=== PATIENT | female | born 2000 | race Caucasian/White ===

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

== ENCOUNTER 2021-12-22 17:29 | Outpatient (CLI) | payer MEDICAID ==
--- NOTE | 2021-12-23 04:08 | XRAY Report ---
PROCEDURE: Ribs 2 View LT INDICATIONS: RIB PAIN,LEFT SIDED TECHNIQUE: 3 views of the left ribs were acquired. COMPARISON: Chest x-ray 12/12/2021 FINDINGS: Surgical changes and devices: None. Bones and chest wall: No displaced rib fracture identified. No suspicious bony lesions. Overlying s oft tissues appear unremarkable. Lungs and pleura: The visualized lung appears clear. No pleural effusions or pneumothorax are visib le. IMPRESSION: 1. No displaced rib fracture identified. Reviewed by: David Garcia MD on 12/23/2021 4:07 AM PDT Approved by: David Garcia MD on 12/23/2021 4:07 AM PDT Station ID: [id number]
== END 2021-12-22 17:30 | disposition home or self-care (01) ==
LOC: DI 17:29
PROVIDERS: ATTEND Physician Assistant Medical
DX: R07.81 Pleurodynia (principal)

== ENCOUNTER 2021-12-26 17:25 | Outpatient (CLI) | payer MEDICAID ==
[2021-12-26 20:55] LABS: BASOPHILS # (AUTO) 0.1 10^3/uL (0.0-0.1); BASOPHILS % (AUTO) 0.5 %; EOSINOPHILS # (AUTO) 0.1 10^3/uL (0.0-0.7); EOSINOPHILS % (AUTO) 1.4 %; HCT - HEMATOCRIT 39.7 % (37.0-47.0); HGB - HEMOGLOBIN 12.8 g/dL (12.0-16.0); LYMPHOCYTES # (AUTO) 2.5 10^3/uL (1.5-3.5); LYMPHOCYTES % (AUTO) 27.1 %; MEAN CORPUSCULAR HEMOGLOBIN 28.1 pg (27.0-31.0); MEAN CORPUSCULAR HGB CONC 32.2 g/dL (32.0-36.0); MEAN CORPUSCULAR VOLUME 87.1 fL (81.0-99.0); MEAN PLATELET VOLUME 11.9 fL (7.9-10.8); MONOCYTES # (AUTO) 0.8 10^3/uL (0.0-1.0); MONOCYTES % (AUTO) 8.7 %; NEUTROPHILS # (AUTO) 5.6 10^3/uL (1.5-6.6); PLT - PLATELET COUNT 317 10^3/uL (130-450); RED BLOOD COUNT 4.56 10^6/uL (4.20-5.40); RED CELL DISTRIBUTION WIDTH 13.2 % (12.0-15.0); WHITE BLOOD COUNT 9.1 x10^3/uL (4.8-10.8)
[2021-12-26 21:07] LABS: ALBUMIN 4.7 g/dL (3.2-5.5); ALBUMIN/GLOBULIN RATIO 1.5 (1.0-2.2); BILIRUBIN,TOTAL 0.5 mg/dL (0.2-1.0); CALCIUM 9.6 mg/dL (8.5-10.3); CREATININE 0.7 mg/dL (0.4-1.0); TOTAL PROTEIN 7.9 g/dL (6.7-8.2)
[2021-12-26 21:20] LABS: THYROID STIMULATING HORMONE 2.47 uIU/mL (0.34-5.60)
== END 2021-12-26 17:26 | disposition home or self-care (01) ==
LOC: LAB.N 17:25
PROVIDERS: ATTEND Physician Assistant Medical
DX: Z00.00 Encounter for general adult medical examination without abnormal findings (principal); R10.11 Right upper quadrant pain
CPT/HCPCS: 36415; 80053; 84443; 85025

== ENCOUNTER 2021-12-29 10:10 | Outpatient (CLI) | payer MEDICAID ==
--- NOTE | 2021-12-29 13:01 | Ultrasound Report ---
PROCEDURE: Abdomen Limited INDICATIONS: RUQ ABD PAIN TECHNIQUE: Real-time focused scanning was performed of the abdomen, with image documentation. COMPARISON: None FINDINGS: Liver is normal in size and show mildly increased liver parenchymal echotexture, no discrete hepatic lesion. There is no gallstone. No gallbladder wall thickening or pericholecystic fluid. No sonographic Bowers 's sign. There is no intrahepatic biliary ductal dilatation. Common bile that measures up to 2.6 mm in diamete r and is within normal limits. Visualized portion of pancreas shows no gross abnormality. Right kidney measures 10 cm in length and 1.3 cm in cortical thickness. No hydronephrosis or solid ap pearing renal lesion. IMPRESSION: 1. Mild hepatic steatosis, no discrete hepatic lesion. 2. Normal-appearing gallbladder. No biliary ductal dilatation. Reviewed by: Reyes Gómez MD on 12/29/2021 1:00 PM PDT Approved by: Reyes Gómez MD on 12/29/2021 1:00 PM PDT Station ID: [id number]
== END 2021-12-29 10:11 | disposition home or self-care (01) ==
LOC: DI 10:10
PROVIDERS: ATTEND Physician Assistant Medical
DX: K76.0 Fatty (change of) liver, not elsewhere classified (principal)

== ENCOUNTER 2022-02-13 12:44 | Outpatient (CLI) | payer BC, MEDICAID | END 2022-02-13 12:45 | disposition home or self-care (01) | LOC: NS 12:44 | PROVIDERS: ATTEND Physician Assistant Medical | DX: K76.0 Fatty (change of) liver, not elsewhere classified (principal); Z71.3 Dietary counseling and surveillance; Z71.89 Other specified counseling; Z68.33 Body mass index [BMI] 33.0-33.9, adult | CPT/HCPCS: 97802 ==

== ENCOUNTER 2022-02-13 14:14 | Outpatient (CLI) | payer BC, MEDICAID ==
[2022-02-13 15:07] LABS: FERRITIN 10.1 ng/mL (11.0-306.8)
[2022-02-13 15:08] LABS: PROLACTIN 9.92 ng/mL
[2022-02-13 15:29] LABS: FOLLICLE STIMULATING HORMONE 5.72 mIU/mL
[2022-02-13 15:30] LABS: LUTEINIZING HORMONE 6.34 mIU/mL
[2022-02-14 04:08] LABS: VITAMIN D 25-HYDROXY 31.4 ng/mL (30.0-100.0)
[2022-02-14 06:11] LABS: ESTRADIOL 93.5 pg/mL (.); PROGESTERONE 0.3 ng/mL (.)
== END 2022-02-13 14:15 | disposition home or self-care (01) ==
LOC: LAB 14:14
PROVIDERS: ATTEND Physician Assistant Medical
DX: K76.0 Fatty (change of) liver, not elsewhere classified (principal); R53.83 Other fatigue; F41.9 Anxiety disorder, unspecified; F32.A Depression, unspecified; Z71.3 Dietary counseling and surveillance
CPT/HCPCS: 36415; 82306; 82607; 82670; 82728; 83001; 83002; 84144; 84146; 97802

== ENCOUNTER 2022-03-09 14:01 | Outpatient (CLI) | payer BC, MEDICAID | END 2022-03-09 14:02 | disposition critical access hospital (66) | LOC: EMS 14:01 | DX: R10.9 Unspecified abdominal pain (principal); R30.9 Painful micturition, unspecified; R23.2 Flushing | CPT/HCPCS: A0425; A0429 ==

== ENCOUNTER 2022-03-09 14:21 | Emergency (ER) | payer BC, MEDICAID ==
[2022-03-09 14:54] LABS: BASOPHILS # (AUTO) 0.1 10^3/uL (0.0-0.1); BASOPHILS % (AUTO) 0.6 %; EOSINOPHILS # (AUTO) 0.1 10^3/uL (0.0-0.7); HCT - HEMATOCRIT 43.5 % (37.0-47.0); HGB - HEMOGLOBIN 14.4 g/dL (12.0-16.0); LYMPHOCYTES # (AUTO) 1.5 10^3/uL (1.5-3.5); LYMPHOCYTES % (AUTO) 15.9 %; MEAN CORPUSCULAR HEMOGLOBIN 28.6 pg (27.0-31.0); MEAN CORPUSCULAR HGB CONC 33.1 g/dL (32.0-36.0); MEAN CORPUSCULAR VOLUME 86.3 fL (81.0-99.0); MONOCYTES # (AUTO) 0.6 10^3/uL (0.0-1.0); MONOCYTES % (AUTO) 6.9 %; NEUTROPHILS % (AUTO) 75.4 %; PLT - PLATELET COUNT 358 10^3/uL (130-450); RED BLOOD COUNT 5.04 10^6/uL (4.20-5.40); RED CELL DISTRIBUTION WIDTH 13.2 % (12.0-15.0); WHITE BLOOD COUNT 9.3 x10^3/uL (4.8-10.8)
[2022-03-09 15:07] LABS: ALBUMIN 4.9 g/dL (3.2-5.5); ALBUMIN/GLOBULIN RATIO 1.3 (1.0-2.2); BILIRUBIN,TOTAL 0.7 mg/dL (0.2-1.0); CREATININE 0.9 mg/dL (0.4-1.0); POTASSIUM 4.2 mmol/L (3.5-5.0); TOTAL PROTEIN 8.6 g/dL (6.7-8.2)
[2022-03-09] MEDS ORDERED: LIDOCAINE-MPF 2% 5 ML in SODIUM CHLORIDE 0.9% 50 ML IV STA (15:26)
[2022-03-09] MEDS ORDERED: KETOROLAC 30 MG/ML VIAL IVP STA (15:26)
--- NOTE | 2022-03-09 15:28 | ED Physician Documentation ---
PD HPI ABD PAIN - Stated complaint Stated Complaint: R KIDNEY PX - Chief complaint Chief Complaint: Abd Pain - History obtained from History obtained from: Patient - History of Present Illness Timing - onset: How many weeks ago (2) Timing - duration: Weeks (2) Timing - details: Gradual onset Pain level max: 10 Pain level now: 7 Quality: Aching, Pain Location: Other (R flank) Associated symptoms: Nausea. No: Fever, Vomiting, Hematemesis, Diarrhea, Constipation Similar symptoms before: Has not had sx before - Additional information Additional information: Patient is a 21-year-old female who presents to the emergency department with right flank pain. This been ongoing intermittently for the past 2 weeks. Worse with movement and better with rest. Pain became increasingly sharp today. Difficulty taking a deep breath. No recent illness. No recent travel. There is a family history of kidney stones. She has never had a kidney stone. No history of blood clots. Patient denies any possibility of . Review of Systems Ten Systems: 10 systems reviewed and negative Constitutional: denies: Fever, Chills Respiratory: denies: Cough : denies: Dysuria, Frequency, Hesitancy, Discharge Skin: denies: Rash Musculoskeletal: denies: Neck pain, Back pain Neurologic: denies: Headache PD PAST MEDICAL HISTORY - Past Medical History Past Medical History: Yes - Present Medications Home Medications: Ambulatory Orders Medication Instructions Recorded Confirmed HYDROcod/ACETAM 5/325 [[place] 5/325] 1 - 2 ea PO Q6H PRN #14 tablet 03/09/22 Ondansetron Odt [Zofran] 4 mg TL Q6H PRN #10 tablet 03/09/22 - Allergies Allergies/Adverse Reactions: Allergies Allergy/AdvReac Type Severity Reaction Status Date / Time amoxicillin Allergy Rash Verified 03/09/22 14:31 hydromorphone [From Dilaudid] Allergy Respiratory Verified 03/09/22 14:31 morphine Allergy Respiratory Verified 03/09/22 14:31 - Living Situation Living Arrangement: reports: At home - Social History Does the pt have substance abuse?: No - Family History Family history: reports: Non contributory PD ED PE NORMAL - Vitals Vital signs reviewed: Yes - General General: Alert and oriented X 3, No acute distress - HEENT HEENT: PERRL, Moist mucous membranes - Neck Neck: Supple, no meningeal sign - Cardiac Cardiac: RRR, Strong equal pulses - Respiratory Respiratory: No respiratory distress, Clear bilaterally - Abdomen Abdomen: Soft, Non distended, Other (mild R upper and lower abd TTP, no peritoneal signs) - Back Back: No CVA TTP, No spinal TTP - Derm Derm: Warm and dry - Extremities Extremities: No edema, No calf tenderness / cord - Neuro Neuro: Alert and oriented X 3 - Psych Psych: Normal mood, Normal affect Results - Vitals Vitals: Vital Signs - 24 hr 03/09/22 03/09/22 03/09/22 14:26 15:46 17:43 Temperature 36.6 C Heart Rate 100 95 94 Respiratory 18 16 16 Rate Blood Pressure 143/86 H 107/64 O2 Saturation 100 100 100 Oxygen O2 Source Room air - Labs Labs: Laboratory Tests 03/09/22 03/09/22 03/09/22 14:49 14:49 14:49 WBC 9.3 RBC 5.04 Hgb 14.4 Hct 43.5 MCV 86.3 MCH 28.6 MCHC 33.1 RDW 13.2 Plt Count 358 MPV 11.0 H Neut # (Auto) 7.0 H Lymph # (Auto) 1.5 [place] # (Auto) 0.6 Eos # (Auto) 0.1 Baso # (Auto) 0.1 Absolute Nucleated RBC 0.00 Nucleated RBC % 0.0 Sodium 137 Potassium 4.2 Chloride 98 L Carbon Dioxide 25 Anion Gap 14.0 H BUN 12 Creatinine 0.9 Estimated GFR (MDRD) 78 L Glucose 113 H Calcium 10.0 Total Bilirubin 0.7 AST 25 ALT 21 Alkaline Phosphatase 82 Total Protein 8.6 H Albumin 4.9 Globulin 3.7 Albumin/Globulin Ratio 1.3 Lipase 39 Serum HCG, Qual NEGATIVE Urine Color Urine Clarity Urine pH Ur Specific [place] Urine Protein Urine Glucose (UA) Urine Ketones Urine Occult Blood Urine Nitrite Urine Bilirubin Urine Urobilinogen Ur Leukocyte Esterase Urine RBC Urine WBC Ur Squamous Epith Cells Amorphous Sediment Urine Bacteria Ur Microscopic Review Urine Culture Comments Urine HCG, Qual 03/09/22 03/09/22 17:10 17:10 WBC RBC Hgb Hct MCV MCH MCHC RDW Plt Count MPV Neut # (Auto) Lymph # (Auto) [place] # (Auto) Eos # (Auto) Baso # (Auto) Absolute Nucleated RBC Nucleated RBC % Sodium Potassium Chloride Carbon Dioxide Anion Gap BUN Creatinine Estimated GFR (MDRD) Glucose Calcium Total Bilirubin AST ALT Alkaline Phosphatase Total Protein Albumin Globulin Albumin/Globulin Ratio Lipase Serum HCG, Qual Urine Color YELLOW Urine Clarity HAZY Urine pH 8.0 H Ur Specific [place] 1.015 Urine Protein TRACE Urine Glucose (UA) NEGATIVE Urine Ketones 40 H Urine Occult Blood MODERATE H Urine Nitrite NEGATIVE Urine Bilirubin NEGATIVE Urine Urobilinogen 0.2 (NORMAL) Ur Leukocyte Esterase SMALL H Urine RBC 6-10 H Urine WBC 6-10 H Ur Squamous Epith Cells MOD Squamous H Amorphous Sediment Moderate Urine Bacteria Moderate H Ur Microscopic Review INDICATED Urine Culture Comments NOT INDICATED Urine HCG, Qual NEGATIVE - Rads (name of study) CT abd/pelvis Radiology: Final report received, EMP read contemporaneously, See rad report PD MEDICAL DECISION MAKING - ED course Complexity details: reviewed results, re-evaluated patient, considered differential, d/w patient ED course: 21-year-old female with right flank/right-sided abdominal pain. Unclear etiology. No significant lab abnormalities. No significant CT abnormalities. No evidence of ureteral stone. No evidence of appendicitis. No evidence of pyelonephritis. Pain well controlled. Will place on pain meds and have her follow-up with her doctor for further care. Possible muscular issue? Patient counseled regarding signs and symptoms for which I believe and urgent re- evaluation would be necessary. Patient with good understanding of and agreement to plan and is comfortable going home at this time This document was made in part using voice recognition software. While efforts are made to proofread this document, sound alike and grammatical errors may occur. Appendix is normal. No right lower quadrant inflammatory change. Departure - Departure Disposition: 01 Home, Self Care Clinical Impression: Flank pain Condition: Good Instructions: ED Flank Pain Uncertain Cause Follow-Up: Vanessa Wei PA-C [Primary Care Provider] - Within 1 week Prescriptions: HYDROcod/ACETAM 5/325 [[place] 5/325] 1 - 2 ea PO Q6H PRN #14 tablet PRN Reason: Pain Ondansetron Odt [Zofran] 4 mg TL Q6H PRN #10 tablet PRN Reason: Nausea / Vomiting Comments: Your prescriptions were sent to [facility] in [place]. Please use the medication as needed for pain. Please follow-up with your doctor for further care. Return if you worsen. Your CT scan and laboratory testing did not show any acute abnormalities today. The cause of your symptoms is unclear. I am prescribing a short course of narcotic pain medication for you. These are potentially dangerous and addictive medications that should be used carefully. These medications may constipate you. Take an cehw-veg-ogkdkta stool softener (docusate) twice daily with plenty of water while taking these medications. If you go 24 hours without a bowel movement, take eteb-uyi-zrkhsuz miralax, per package instructions. Do not drink or drive while taking these medications. If you received narcotic or sedating medications while in the emergency department, do not drive for 24 hours. Store this medication in a safe, secure place and out of reach of children. It is a violation of federal law to give or sell this medication to another person or to use in a manner other than prescribed. The ED will not refill narcotic prescriptions, including prescriptions lost or stolen. To dispose of unwanted medications: 1. [facility] at [address] in [place] has a medication drop box. They accept prescription medications (in pill form) Saturday through Saturday 9:00 a.m. to 5:00 p.m. 2. [facility] [employer] accepts prescription medications (in pill form only) for disposal year round. Call for more information. 3. Contact the [facility] for the next [employer] sponsored prescription drug collection event. , [phone], or [phone]; Discharge Date/Time: 03/09/22 19:12
[2022-03-09] MEDS ORDERED: iohexoL-300 100 ML VIAL ONE (15:45)
[2022-03-09 17:22] LABS: BILIRUBIN,URINE NEGATIVE (NEGATIVE); GLUCOSE, URINE (UA) NEGATIVE (NEGATIVE); KETONES,URINE (UA) 40 mg/dL (NEGATIVE); LEUKOCYTE ESTERASE, URINE SMALL (NEGATIVE); NITRITE,URINE NEGATIVE (NEGATIVE); OCCULT BLOOD,URINE MODERATE (NEGATIVE); PROTEIN,URINE TRACE mg/dL (NEGATIVE); UROBILINOGEN,URINE 0.2 (NORMAL) E.U./dL (NORMAL)
[2022-03-09 17:29] LABS: CLARITY,URINE HAZY (CLEAR)
[2022-03-09 17:33] LABS: SQUAMOUS EPITHELIAL CELL,UR MOD Squamous (<= Few)
[2022-03-09 17:34] LABS: AMORPHOUS SEDIMENT,UR Moderate /LPF; BACTERIA,URINE Moderate /HPF (None Seen)
[2022-03-09 17:40] LABS: HCG,QUALITATIVE BLOOD NEGATIVE
[2022-03-09 17:47] LABS: HCG UR QUAL NEGATIVE
[2022-03-09 18:05] VITALS: BP 107/64
[2022-03-09] MEDS ORDERED: iohexoL-300 100 ML VIAL IVP ONE (18:20)
--- NOTE | 2022-03-09 18:27 | CT Report ---
PROCEDURE: ABDOMEN/PELVIS W INDICATIONS: R sided abd pain CONTRAST: 100ml omni 300 TECHNIQUE: After the administration of IP contrast, 5 mm thick sections acquired from the diaphragms to the symp hysis. 5 mm thick coronal and sagittal reformats were acquired. For radiation dose reduction, the f ollowing was used: automated exposure control, adjustment of mA and/or kV according to patient size. COMPARISON: Abdomen ultrasound 12/29/2021 FINDINGS: Image quality: Excellent. ABDOMEN: Lung bases: Lung bases are clear. Heart size is normal. Solid organs: Liver and spleen are normal in size and enhancement. Gallbladder is unremarkable Mat iary system is non dilated. Pancreas enhances normally. No adrenal nodules. Kidneys demonstrate no rmal size and enhancement, without hydronephrosis. Peritoneum and bowel: Bowel loops demonstrate normal wall thickness and caliber. No free fluid or a ir. Appendix is normal. Nodes and vessels: No retroperitoneal or mesenteric adenopathy by size criteria. Aorta and inferior vena cava are normal in size. Miscellaneous: No ventral hernias. PELVIS: Genitourinary: Bladder wall thickness is normal. IUD is present. Miscellaneous: No inguinal hernias or adenopathy. Bones: No suspicious bony lesions. No vertebral body compression fractures. IMPRESSION: Appendix is normal. No right lower quadrant inflammatory change. Reviewed by: Corinna Tamayo MD on 03/09/2022 6:25 PM PST Approved by: Corinna Tamayo MD on 03/09/2022 6:25 PM PST Station ID: [id number]
[2022-03-09] MEDS ORDERED: ONDANSETRON 4 MG/2 ML VIAL IVP STA (18:40)
[2022-03-09] MEDS ORDERED: HYDROcod/ACETAM 5/325 MG TABLET PO STA (18:52)
== END 2022-03-09 19:12 | disposition home or self-care (01) ==
LOC: EDUNIT# → ED 14:21
DX: R10.9 Unspecified abdominal pain (principal)
CPT/HCPCS: 36415; 74177; 80053; 81001; 81025; 83690; 84703; 85025; 96374; 96375; 99282; 99284; A9270; J7040; Q9967; 81003; 87086

== ENCOUNTER 2022-03-14 08:00 | Outpatient (CLI) | payer BC, MEDICAID | END 2022-03-14 23:59 | disposition home or self-care (01) | LOC: LAB 08:00 | PROVIDERS: ATTEND Physician Assistant Medical | DX: R10.31 Right lower quadrant pain (principal) | CPT/HCPCS: 87086 ==

== ENCOUNTER 2022-03-19 20:53 | Outpatient (CLI) | payer BC, MEDICAID ==
--- NOTE | 2022-03-20 13:44 | Ultrasound Report ---
PROCEDURE: Pelvic w/Transvaginal INDICATIONS: RLQ ABDOMINAL PAIN TECHNIQUE: Real-time scanning was performed of the pelvic organs, with image documentation. Additional endovagi nal scanning was necessary due to incomplete visualization of the adnexal and endometrial structures by transabdominal scanning. COMPARISON: CT abdomen and pelvis, 03/09/2022 ultrasound pelvis, 10/30/2016. FINDINGS: Uterus: Uterus is anteverted and normal in size at 6.5 x 3.1 x 4.0 cm. The myometrium is homogeneou s. The endometrium measures 4.9 mm in combined thickness. There is an IUD in appropriate position. Ovaries: The right ovary measures 3.2 x 1.7 x 2.6 cm, with a calculated ovarian volume of 7.4 cc. T he left ovary measures 3.4 x 2.2 x 4.4 cm, with a calculated ovarian volume of 17.5 cc. The ovaries have a normal sonographic appearance. Less than 12 follicles can be seen in each ovary. No adnexal masses are seen. Other: No pathologic free abdominal or pelvic fluid. IMPRESSION: 1. A cause for right lower quadrant pain is not identified on this exam. 2. IUD in appropriate position. 3. Normal uterus and ovaries. Reviewed by: Santhosh Paulson MD on 03/20/2022 1:43 PM PST Approved by: Santhosh Paulson MD on 03/20/2022 1:43 PM PST Station ID: [id number]
== END 2022-03-19 20:54 | disposition home or self-care (01) ==
LOC: DI 20:53
PROVIDERS: ATTEND Physician Assistant Medical
DX: R10.31 Right lower quadrant pain (principal); Z97.5 Presence of (intrauterine) contraceptive device

== ENCOUNTER 2022-04-02 08:00 | Outpatient (CLI) | payer BC, MEDICAID ==
[2022-04-02 22:37] LABS: BACTERIAL VAGINOSIS DNA NEGATIVE (NEGATIVE); CANDIDA GLABRATA DNA NEGATIVE (NEGATIVE); CANDIDA GROUP DNA POSITIVE (NEGATIVE); CANDIDA KRUSEI DNA NEGATIVE (NEGATIVE); TRICHOMONAS VAGINALIS DNA NEGATIVE (NEGATIVE)
[2022-04-02 23:43] LABS: CHLAMYDIA TRACHOMATIS DNA NEGATIVE (NEGATIVE); NEISSERIA GONORRHOEAE DNA NEGATIVE (NEGATIVE)
[2022-04-05 05:10] LABS: HIV SCREEN 4TH GENERATION Non Reactive (Non Reactive)
[2022-04-05 06:09] LABS: HCV AB 0.1 s/co ratio (0.0-0.9)
[2022-04-05 08:10] LABS: RPR Non Reactive (Non Reactive)
== END 2022-04-02 23:59 | disposition home or self-care (01) ==
LOC: LAB.N 08:00
PROVIDERS: ATTEND Physician Assistant
DX: N89.8 Other specified noninflammatory disorders of vagina (principal); Z20.2 Contact with and (suspected) exposure to infections with a predominantly sexual mode of transmission
CPT/HCPCS: 36415; 81514; 86592; 86803; 87389; 87491; 87591; 87661

== ENCOUNTER → 2022-04-03 | Outpatient (CLI) | payer BC, MEDICAID ==
[2022-04-05 05:10] LABS: HIV SCREEN 4TH GENERATION Non Reactive (Non Reactive)
[2022-04-05 06:09] LABS: HCV AB 0.1 s/co ratio (0.0-0.9)
[2022-04-05 08:10] LABS: RPR Non Reactive (Non Reactive)
== END ==
LOC: LAB.N 08:00
PROVIDERS: ATTEND Physician Assistant
DX: Z20.2 Contact with and (suspected) exposure to infections with a predominantly sexual mode of transmission (principal); N89.8 Other specified noninflammatory disorders of vagina
CPT/HCPCS: 36415; 86592; 86803; 87389

== ENCOUNTER 2022-05-03 20:22 | Emergency (ER) | payer BC, MEDICAID ==
--- NOTE | 2022-05-03 20:38 | ED Physician Documentation ---
PD HPI ABD PAIN - Stated complaint Stated Complaint: ABD/BACK PX, NAUSEA - Chief complaint Chief Complaint: Abd Pain - History obtained from History obtained from: Patient - History of Present Illness Timing - onset: How many weeks ago (2) Timing - duration: Weeks (2) Timing - details: Gradual onset (Has had pain in the right abdomen and flank for 2 weeks and had episodes of it prior to that as well. Has become right mid to lower abdomen yesterday and today and more severe.) Quality: Cramping, Aching, Pain Location: RLQ Radiation: Right flank Improved by: No: Eating, Laying still Worsened by: Moving. No: Eating, Breathing Associated symptoms: Nausea, Constipation (states no BMs for 2 weeks. Has had less appetite and thus less food intake. Also taking pain meds episodic the past 2 weeks which may likely be contributing to the constiaption. Taking Miralax daily.). No: Fever, Vomiting, Diarrhea Similar symptoms before: No diagnosis (She had pain in the similar area 3 months ago and seen in the ER with CT scan and labs without any positive findings. Follow-up in the office and had outpatient ultrasound. Being scheduled for HIDA scan.) Recently seen: Clinic, Emergency Dept (3 months ago for similar episode.) Review of Systems Constitutional: denies: Fever, Chills Nose: denies: Rhinorrhea / runny nose, Congestion Throat: denies: Sore throat Respiratory: denies: Cough : denies: Dysuria, Discharge Skin: denies: Rash, Lesions PD PAST MEDICAL HISTORY - Past Medical History Cardiovascular: None Respiratory: None Endocrine/Autoimmune: None - Present Medications Home Medications: Ambulatory Orders Medication Instructions Recorded Confirmed HYDROcod/ACETAM 5/325 [[place] 5/325] 1 - 2 ea PO Q6H PRN #14 tablet 03/09/22 Ondansetron Odt [Zofran] 4 mg TL Q6H PRN #10 tablet 03/09/22 Bisacodyl Supp [Dulcolax Supp] 10 mg FL DAILY PRN #10 supp 05/03/22 Famotidine [Pepcid] 20 mg PO DAILY #20 tablet 05/03/22 Lactulose 30 ml PO BID PRN #240 ml 05/03/22 Metoclopramide [Reglan] 10 mg PO Q6H PRN #30 tablet 05/03/22 - Allergies Allergies/Adverse Reactions: Allergies Allergy/AdvReac Type Severity Reaction Status Date / Time amoxicillin Allergy Rash Verified 05/03/22 20:33 hydromorphone [From Dilaudid] Allergy Respiratory Verified 05/03/22 20:33 morphine Allergy Respiratory Verified 05/03/22 20:33 - Social History Does the pt smoke?: No Smoking Status: Never smoker Does the pt have substance abuse?: No PD ED PE NORMAL - Vitals Vital signs reviewed: Yes - General General: Alert and oriented X 3, Well developed/nourished, Other (appears uncomfortable. ) - Neck Neck: Supple, no meningeal sign, No adenopathy - Cardiac Cardiac: RRR, No murmur - Respiratory Respiratory: Clear bilaterally - Abdomen Abdomen: Normal bowel sounds, Soft, Non distended, No organomegaly, Other (Tender in the right mid to lower abdomen without any percussion or referred tenderness. Some tenderness in the right flank to percussion. No rash or sores.) - Female Female : Deferred Results - Vitals Vitals: Vital Signs - 24 hr 05/03/22 05/03/22 05/03/22 20:26 20:33 22:12 Temperature 36.7 C Heart Rate 100 74 73 Respiratory 19 18 18 Rate Blood Pressure 132/81 H 113/69 102/62 O2 Saturation 100 96 100 05/03/22 23:00 Temperature Heart Rate 91 Respiratory 18 Rate Blood Pressure 109/79 O2 Saturation 99 Oxygen O2 Source Room air - Labs Labs: Laboratory Tests 05/03/22 05/03/22 05/03/22 20:38 20:38 20:38 WBC 9.3 RBC 5.00 Hgb 14.6 Hct 44.3 MCV 88.6 MCH 29.2 MCHC 33.0 RDW 12.4 Plt Count 345 MPV 10.9 H Neut # (Auto) 6.4 Lymph # (Auto) 2.0 [place] # (Auto) 0.7 Eos # (Auto) 0.1 Baso # (Auto) 0.1 Absolute Nucleated RBC 0.00 Nucleated RBC % 0.0 ESR 4 Sodium 134 L Potassium 3.8 Chloride 100 L Carbon Dioxide 27 Anion Gap 7.0 BUN 15 Creatinine 1.0 Estimated GFR (MDRD) 69 L Glucose 104 H Calcium 9.2 Total Bilirubin 1.0 AST 24 ALT 19 Alkaline Phosphatase 70 C-Reactive Protein Total Protein 8.2 Albumin 5.0 Globulin 3.2 Albumin/Globulin Ratio 1.6 Lipase 38 Urine Color Urine Clarity Urine pH Ur Specific [place] Urine Protein Urine Glucose (UA) Urine Ketones Urine Occult Blood Urine Nitrite Urine Bilirubin Urine Urobilinogen Ur Leukocyte Esterase Urine RBC Urine WBC Ur Squamous Epith Cells Urine Bacteria Urine Mucus Ur Microscopic Review Urine Culture Comments Urine HCG, Qual 05/03/22 05/03/22 05/03/22 20:38 20:45 20:45 WBC RBC Hgb Hct MCV MCH MCHC RDW Plt Count MPV Neut # (Auto) Lymph # (Auto) [place] # (Auto) Eos # (Auto) Baso # (Auto) Absolute Nucleated RBC Nucleated RBC % ESR Sodium Potassium Chloride Carbon Dioxide Anion Gap BUN Creatinine Estimated GFR (MDRD) Glucose Calcium Total Bilirubin AST ALT Alkaline Phosphatase C-Reactive Protein < 1.0 Total Protein Albumin Globulin Albumin/Globulin Ratio Lipase Urine Color DARK YELLOW Urine Clarity HAZY Urine pH 6.5 Ur Specific [place] 1.025 Urine Protein TRACE Urine Glucose (UA) NEGATIVE Urine Ketones 40 H Urine Occult Blood NEGATIVE Urine Nitrite NEGATIVE Urine Bilirubin SMALL H Urine Urobilinogen 2 H Ur Leukocyte Esterase NEGATIVE Urine RBC 0-5 Urine WBC 0-3 Ur Squamous Epith Cells FEW Squamous Urine Bacteria Moderate H Urine Mucus Marked Strands Ur Microscopic Review INDICATED Urine Culture Comments NOT INDICATED Urine HCG, Qual NEGATIVE - Rads (name of study) abd/pelvic CT Radiology: Prelim report reviewed (No obvious acute process.), See rad report PD Medical Decision Making - ED course Complexity details: reviewed results (CT scan does not show an acute obvious cause of the pain. Urine test shows some bacteria but also epithelial cells and is not cultured. Blood tests are in the normal range and diet ordered chemistry and CBC to evaluate for causes.), considered differential (Has had right flank and mid abdomen pain episodically for several months and has recurred the last 2 weeks with much worsening yesterday and today. She did have CT scan 3 months ago but I feel it may be appropriate to reimage at this point given the worsening.), d/w patient Reviewed Lab Results: No obvious cause of the pain is identified on labs, urine, CT scan. Consideration had been for kidney stones, diverticulitis, appendicitis, pyelonephritis. Her ESR is quite normal so makes IBD or Crohn's seem less likely. She was to get a HIDA scan scheduled through her primary and could still consider this of the pains not necessarily right upper quadrant exactly what I expected to be for gallbladder spasms. Regarding her constipation, it likely relates to pain medication use as well as decreased food intake. She does not feel distended and her CT scan was not a showing an excessively large amount of stool. However we can augment her MiraLAX with lactulose and also Dulcolax. For her nausea we can change to Reglan which may have a help with increasing peristalsis. This will allow improvement on both "mush and push" aspects of constipation. Departure - Departure Disposition: Home, Self Care Clinical Impression: Right sided abdominal pain Condition: Stable Record reviewed to determine appropriate education?: Yes Instructions: ED Abdominal Pain Female Non-Specific Abdominal Pain Follow-Up: Vanessa Wei PA-C [Primary Care Provider] - Prescriptions: Bisacodyl Supp [Dulcolax Supp] 10 mg FL DAILY PRN #10 supp PRN Reason: Constipation Lactulose 30 ml PO BID PRN #240 ml PRN Reason: Constipation Famotidine [Pepcid] 20 mg PO DAILY #20 tablet Metoclopramide [Reglan] 10 mg PO Q6H PRN #30 tablet PRN Reason: Nausea / Vomiting Comments: Your urine test does not show any signs of infection. Your blood tests are showing normal liver and pancreas enzymes normal kidney function. He also have a normal ESR which is an inflammatory marker that would likely correlate with inflammatory colitis such as IBD or Crohn's. That makes those less likely but not fully excluded. At this point is not clear the cause of your pain. Given the back and upper abdomen location initially as well as the lack of appetite/nausea, I would consider the idea of some duodenal irritation/inflammation (similar to gastritis/stomach irritation but in the first segment of the small intestine). For this I would suggest trying some famotidine acid reducing medicine twice daily for a few days and then once daily for 2 to 3 weeks. Also some antacid such as Maalox or Mylanta 2-3 times daily, in particular after meals and see if that helps some of the pains. For the nausea, continue with the ondansetron or alternatively you can try Reglan nausea medicine instead. This may last longer than the Zofran has been for you and also has an advantage of being stimulatory for intestinal peristalsis. This may help with your constipation as well. For the constipation you can continue the MiraLAX. I would add lactulose which is another softener and does provide some stimulation of the peristalsis. If still not having easy bowel movement, add Dulcolax suppository. This would try to stimulate intestinal movement. It this combination for the constipation is trying to help with both "mush and push" as improvements in constipation. Continue with Tylenol every 4-6 hours for pain regularly and to that add the previously prescribed pain pills as needed. I sent the new prescriptions to your [facility] pharmacy in [place]. Discharge Date/Time: 05/03/22 23:02
[2022-05-03 20:51] LABS: BASOPHILS # (AUTO) 0.1 10^3/uL (0.0-0.1); BASOPHILS % (AUTO) 0.8 %; EOSINOPHILS # (AUTO) 0.1 10^3/uL (0.0-0.7); EOSINOPHILS % (AUTO) 0.6 %; HCT - HEMATOCRIT 44.3 % (37.0-47.0); HGB - HEMOGLOBIN 14.6 g/dL (12.0-16.0); LYMPHOCYTES % (AUTO) 21.9 %; MEAN CORPUSCULAR HEMOGLOBIN 29.2 pg (27.0-31.0); MEAN CORPUSCULAR VOLUME 88.6 fL (81.0-99.0); MEAN PLATELET VOLUME 10.9 fL (7.9-10.8); MONOCYTES # (AUTO) 0.7 10^3/uL (0.0-1.0); MONOCYTES % (AUTO) 7.9 %; NEUTROPHILS # (AUTO) 6.4 10^3/uL (1.5-6.6); NEUTROPHILS % (AUTO) 68.7 %; PLT - PLATELET COUNT 345 10^3/uL (130-450); RED CELL DISTRIBUTION WIDTH 12.4 % (12.0-15.0); WHITE BLOOD COUNT 9.3 x10^3/uL (4.8-10.8)
[2022-05-03] MEDS ORDERED: KETOROLAC 15 MG/ML VIAL IVP STA (20:54)
[2022-05-03] MEDS ORDERED: SODIUM CHLORIDE 0.9% 1,000 ML IV STA (20:54)
[2022-05-03] MEDS ORDERED: DROPERIDOL 5 MG/2 ML VIAL IVP STA (20:54)
[2022-05-03] MEDS ORDERED: NALBUPHINE 10 MG/ML AMP IVP STA (20:54)
[2022-05-03 21:07] LABS: ALBUMIN/GLOBULIN RATIO 1.6 (1.0-2.2); CALCIUM 9.2 mg/dL (8.5-10.3); POTASSIUM 3.8 mmol/L (3.5-5.0); TOTAL PROTEIN 8.2 g/dL (6.7-8.2)
[2022-05-03] MEDS ORDERED: iohexoL-300 100 ML VIAL ONE (21:11)
[2022-05-03 21:13] LABS: GLUCOSE, URINE (UA) NEGATIVE (NEGATIVE); KETONES,URINE (UA) 40 mg/dL (NEGATIVE); LEUKOCYTE ESTERASE, URINE NEGATIVE (NEGATIVE); NITRITE,URINE NEGATIVE (NEGATIVE); OCCULT BLOOD,URINE NEGATIVE (NEGATIVE); PH,URINE 6.5 PH (5.0-7.5); PROTEIN,URINE TRACE mg/dL (NEGATIVE); UROBILINOGEN,URINE 2 E.U./dL (NORMAL)
[2022-05-03 21:16] LABS: CLARITY,URINE HAZY (CLEAR); HCG UR QUAL NEGATIVE
[2022-05-03 21:17] LABS: BILIRUBIN,URINE SMALL (NEGATIVE); ICTOTEST,URINE POSITIVE
[2022-05-03 21:28] LABS: BACTERIA,URINE Moderate /HPF (None Seen); MUCUS,URINE Marked Strands; RBC,URINE 0-5 /HPF (0-5); SQUAMOUS EPITHELIAL CELL,UR FEW Squamous (<= Few); WBC,URINE 0-3 /HPF (0-5)
--- NOTE | 2022-05-03 22:24 | CT Report ---
PROCEDURE: ABDOMEN/PELVIS W INDICATIONS: right abd and flank pain worse past few days. CONTRAST: Omni 300 100ml TECHNIQUE: After the administration of intravenous contrast, 5 mm thick sections acquired from the diaphragms to the symphysis. 5 mm thick coronal and sagittal reformats were acquired. For radiation dose reducti on, the following was used: automated exposure control, adjustment of mA and/or kV according to miller ent size. COMPARISON: None. FINDINGS: Image quality: Excellent. Lung bases:There is minimal dependent atelectasis. Heart: Heart is normal in size. ABDOMEN: Liver: No mass lesion. Gallbladder: Within normal limits without calcified gallstones. Biliary ducts: No biliary ductal dilatation. Pancreas: Unremarkable. Spleen: Normal in size. Adrenal Glands: No adrenal nodules. Kidneys and Ureters: No hydronephrosis. Stomach and Bowel: Stomach, small bowel loops, and colon are normal in caliber and wall thickness. A ppendix is normal in appearance. Peritoneum: No abnormal intraperitoneal fluid. No free air. Ventral Wall: No hernia. Abdominal Nodes: No retroperitoneal or mesenteric adenopathy by size criteria. Vessels: Aorta and inferior vena cava are normal in size. PELVIS: Pelvic Organs: An IUD appears in appropriate position within the uterus. Bladder: Unremarkable. Pelvic Nodes: No enlarged lymph nodes. Miscellaneous: No inguinal hernias. Bones: Visualized osseous structures demonstrate no suspicious lesions. IMPRESSION: 1. No definite acute intra-abdominal abnormality. Specifically, no evidence of appendicitis or obstru ctive uropathy. Reviewed by: David Garcia MD on 05/03/2022 10:23 PM PST Approved by: David Garcia MD on 05/03/2022 10:23 PM PST Station ID: [id number]
[2022-05-03] MEDS ORDERED: LACTULOSE 10 GM /15 ML UDC PO STA (22:30)
[2022-05-03] MEDS ORDERED: FAMOTIDINE 20 MG TABLET PO STA (22:39)
[2022-05-03 23:02] VITALS: BP 109/79
[2022-05-04] MEDS ORDERED: iohexoL-300 100 ML VIAL IVP ONE (02:06)
== END 2022-05-03 23:02 | disposition home or self-care (01) ==
LOC: ED 20:22
DX: R10.31 Right lower quadrant pain (principal)
CPT/HCPCS: 36415; 74177; 80053; 81001; 81025; 83690; 85025; 85651; 86140; 96374; 96375; 99283; 99284; A9270; J2300; Q9967; 81003; 87086

== ENCOUNTER 2022-05-16 08:51 | Outpatient (CLI) | payer BC, MEDICAID ==
[2022-05-16 09:21] LABS: BASOPHILS # (AUTO) 0.1 10^3/uL (0.0-0.1); BASOPHILS % (AUTO) 0.8 %; EOSINOPHILS # (AUTO) 0.1 10^3/uL (0.0-0.7); EOSINOPHILS % (AUTO) 1.2 %; HCT - HEMATOCRIT 43.3 % (37.0-47.0); HGB - HEMOGLOBIN 14.1 g/dL (12.0-16.0); LYMPHOCYTES % (AUTO) 27.4 %; MEAN CORPUSCULAR HGB CONC 32.6 g/dL (32.0-36.0); MEAN CORPUSCULAR VOLUME 89.1 fL (81.0-99.0); MEAN PLATELET VOLUME 11.3 fL (7.9-10.8); MONOCYTES # (AUTO) 0.6 10^3/uL (0.0-1.0); MONOCYTES % (AUTO) 8.3 %; NEUTROPHILS # (AUTO) 4.6 10^3/uL (1.5-6.6); PLT - PLATELET COUNT 280 10^3/uL (130-450); RED BLOOD COUNT 4.86 10^6/uL (4.20-5.40); RED CELL DISTRIBUTION WIDTH 12.7 % (12.0-15.0); WHITE BLOOD COUNT 7.4 x10^3/uL (4.8-10.8)
[2022-05-16 09:45] LABS: % IRON SATURATION 46 % (20-50); IRON 189 ug/dL (28-170); TOTAL IRON BINDING CAPACITY 409 ug/dL (250-450); TRANSFERRIN 292 mg/dL (192-382)
[2022-05-16 09:51] LABS: THYROID STIMULATING HORMONE 2.38 uIU/mL (0.34-5.60)
[2022-05-16 09:58] LABS: FERRITIN 11.3 ng/mL (11.0-306.8)
== END 2022-05-16 08:52 | disposition home or self-care (01) ==
LOC: LAB 08:51
PROVIDERS: ATTEND Physician Assistant Medical
DX: R53.83 Other fatigue (principal)
CPT/HCPCS: 36415; 82607; 82728; 83540; 84443; 84466; 85025

== ENCOUNTER 2022-06-20 08:52 | Outpatient (CLI) | payer BC ==
[2022-06-20 12:33] LABS: ESTIMATED AVERAGE GLUCOSE 103 mg/dL (70-100); HEMOGLOBIN A1c% 5.2 % (4.27-6.07)
[2022-06-20 12:44] LABS: ALBUMIN 4.2 g/dL (3.2-5.5); ALBUMIN/GLOBULIN RATIO 1.3 (1.0-2.2); ALKALINE PHOSPHATASE 65 IU/L (42-121); ALT ALANINE AMINOTRANSFERASE 17 IU/L (10-60); AST ASPARTATE AMINOTRANSFERASE 21 IU/L (10-42); BILIRUBIN,TOTAL 0.6 mg/dL (0.2-1.0); BUN - BLOOD UREA NITROGEN 14 mg/dL (6-20); CALCIUM 9.5 mg/dL (8.5-10.3); CARBON DIOXIDE - CO2 27 mmol/L (21-32); CHLORIDE 103 mmol/L (101-111); CHOL/HDL RATIO 3.4 (<4.4); CHOLESTEROL 158 mg/dL; CREATININE 0.7 mg/dL (0.4-1.0); GFR - MDRD 104 (>89); GLUCOSE 93 mg/dL (70-100); HDL CHOLESTEROL 47 mg/dL; LDL CHOLESTEROL,CALCULATED 101 mg/dL; LDL/HDL RATIO 2.1 (<4.4); POTASSIUM 4.1 mmol/L (3.5-5.0); SODIUM 137 mmol/L (135-145); TOTAL PROTEIN 7.4 g/dL (6.7-8.2); TRIGLYCERIDES 49 mg/dL; VLDL CHOLESTEROL 10 mg/dL
== END 2022-06-20 08:53 | disposition home or self-care (01) ==
LOC: LAB.N 08:52
PROVIDERS: ATTEND Family Medicine
DX: R73.9 Hyperglycemia, unspecified (principal); R53.83 Other fatigue; Z13.220 Encounter for screening for lipoid disorders
CPT/HCPCS: 36415; 80053; 80061; 83036; 83721

== ENCOUNTER 2022-07-02 18:42 | Outpatient (CLI) | payer BC ==
[2022-07-02] MEDS ORDERED: iohexoL-300 100 ML VIAL ONE (18:47)
--- NOTE | 2022-07-02 19:52 | CT Report ---
PROCEDURE: ANGIO CHEST W/WO INDICATIONS: DYSPNEA CONTRAST: 80mL Omni 300 TECHNIQUE: After the administration of intravenous contrast, 2 mm axial images were acquired from the pulmonary apices to the posterior costophrenic angles during the arterial phase. In addition, 1 mm lung kernel and 5 mm soft tissue kernel reconstructions were performed. 3-dimensional coronal oblique maximum int ensity projection (MIP) reformats, 8 mm axial MIP, and 5 mm coronal and sagittal MPR reformats were t hen performed through the thorax. For radiation dose reduction, the following was used: automated exp osure control, adjustment of mA and/or kV according to patient size. COMPARISON: None FINDINGS: Image quality: Excellent. Pulmonary arteries: Pulmonary arteries are normal in size, and demonstrate no intraluminal filling d efects to suggest central pulmonary embolism. Lungs and pleura: Lungs are clear. No pleural effusions or pneumothorax. Central and peripheral ai rways are patent. Mediastinum: Heart size is normal, without pericardial effusion. No mediastinal or hilar adenopathy . Thoracic aorta is normal in caliber and enhancement. Esophagus is normal in caliber, without hiat al hernia. Bones and chest wall: No suspicious bony lesions. Ribs and thoracic spine appear intact throughout. No axillary or supraclavicular adenopathy. The thyroid is normal in size and there are no incident al findings. Abdomen: Visualized upper abdominal solid organs appear normal in the early arterial phase of enhanc ement. IMPRESSION: 1. No evidence of pulmonary bullae. No thoracic aortic aneurysm or dissection. 2. Bilateral lungs are clear. 3. No mediastinal or hilar lymphadenopathy. CLINICAL RECOMMENDATION STATEMENTS: In patients <35 years with an ITN detected on CT, MRI, or extrathyroidal ultrasound, the Committee re commends further evaluation with dedicated thyroid ultrasound if the nodule is "e1 cm and has no susp icious imaging features, and if the patient has normal life expectancy. In patients "e35 years with an ITN detected on CT, MRI, or extrathyroidal ultrasound, the Committee r ecommends further evaluation with dedicated thyroid ultrasound if the nodule is "e1.5 cm and has no s uspicious imaging features, and if the patient has normal life expectancy. (ACR, 2014) Reviewed by: Reyes Gómez MD on 07/02/2022 7:50 PM PDT Approved by: Reyes Gómez MD on 07/02/2022 7:50 PM PDT Station ID: [id number]
[2022-07-02] MEDS ORDERED: iohexoL-300 100 ML VIAL IVP ONE (20:52)
== END 2022-07-02 18:43 | disposition home or self-care (01) ==
LOC: DI 18:42
PROVIDERS: ATTEND Physician Assistant Medical
DX: R06.09 Other forms of dyspnea (principal); R07.81 Pleurodynia
CPT/HCPCS: 71275; Q9967

== ENCOUNTER 2022-08-24 15:34 | Outpatient (CLI) | payer BC ==
--- NOTE | 2022-08-24 16:08 | Sleep Patient Instructions ---
Sleep Center Visit Summary - Patient Visit Information Reason for Visit: Initial consult for evaluation of sleep disordered breathing and other sleep issues. - Patient Instructions Instructions Attached: Sleep Clinic Visit, Sleep Study, Sleep Study Home Monitor Additional Instructions: You will be completing a sleep study, either an in-lab polysomnography (PSG) or home sleep study (HST). You will follow-up in the sleep care office after the sleep study is completed to hear the results and talk about therapy, if needed. You will be called by our office staff to schedule this appointment, but you may contact us with any questions. - Clinic Information Contact: [facility] [address] [place] [address] [email or web address] T: [phone]
[2022-08-24 16:13] VITALS: BP 96/58
--- NOTE | 2022-08-24 16:13 | SLEEP CARE CONSULTATION ---
Information from patient questionnaire entered by Mary Swenson. I have reviewed and concur with the information entered by Mary Swenson. This document represents the service I personally performed and the decisions made by me, Rajani Simmons ARNP. History of Present Illness Service Date and Time: 08/24/2022 1534 Reason for Visit: New patient Chief Complaint: reports: Unrefreshed sleep, Excessive daytime sleepiness, Fatigue, Frequent awakenings at night Date of Onset: YRS Usual bedtime: 10-1030 Time it takes to fall asleep: 30-45MINS if does not take melatonin Snores at night: Yes Observed to quit breathing while asleep: No Sleeps alone due to snoring: No Number of times waking at night: NOT SURE Reasons for waking at night: reports: Bathroom, Other (UNKNOWN, BODY JOLTS). denies: Choking, Snoring, Gasping for air Toss, Turn, or Twitch while sleeping: Yes Recalls having dreams: No Usually gets out of bed at: 530-6AM Feels refreshed in the morning: No Morning headache: Yes (every morning; COUPLE HRS INTO THE DAY) Sleepy or fatigued during the day: Yes Ever fallen asleep while driving: No Takes day naps: Yes (more on weekend) Dreams during day naps: No Prior sleep studies: No Additional HPI information: I had the pleasure of seeing CLAIRE OLSON today regarding the possibility of her having a sleep disorder. Her current complaints are unrefreshed sleep, excessive daytimes sleepiness, fatigue and frequent night awakenings. She states she gets the same amount of sleep but is "super, super tired" now. She has family members with sleep apnea and has come in for evaluation. - Parasomnia Symptoms Ever been unable to move upon waking from sleep: Yes (rare occurrance) Walks in sleep: No Talks in sleep: Yes (has woke up screaming with no memory of dreaming) Ever acted out dreams in sleep: Yes (small movements) Ever felt weak in the knees when startled or emotional: Yes (has not fallen to ground) Bothered by creepy, crawly, restless sensations in legs: Yes (just all the time) Problems with memory or concentration: Yes (both) Subjective Initial Bascom Sleepiness Scale score: 9 (08/24/22) Past Medical History Past Medical History: reports: Claustrophobia, Anxiety, Asthma, Depression, Attention deficit Social History 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 Patient is Single and lives in [place]. Have you smoked in the past 12 months: No Alcohol use: Yes Alcohol amount and frequency: 1-2 DRINKS 1-2 TIMES A MONTH Caffeine use: Yes Caffeine amount and frequency: 1 COFFEE OR 1 REDBULL EVERYDAY Family History Family history of sleep disordered breathing: Yes Family Hx Sleep Apnea: Father: Snoring, Sleep apnea - Treated, Sibling: Snoring, Sleep apnea - Treated, Sleep apnea - Untreated Allergies and Home Medications Known drug allergies: Yes (MORPHINE, HYDROMORPHONE, AMOXICILLIN, PENICILLIN, LATEX) Drug allergies reviewed: Yes Home medication list reviewed: Yes Allergy and home medication list: Allergies amoxicillin Allergy (Verified 08/23/22 13:48) Rash hydromorphone [From Dilaudid] Allergy (Verified 08/23/22 13:48) Respiratory morphine Allergy (Verified 08/23/22 13:48) Respiratory Medications: Duloxetine Loratidine Diclofenac, oral Albuterol inhaler, prn Review of Systems Weight gain over past 5 years: 25-30 Weight loss over past 5 years: 10, in last year Cardiovascular: denies: irregular heart rate or pulse Gastrointestinal: reports: nausea, abdominal pain. denies: heartburn Urinary: reports: other (HESITANCY ) Neurological: reports: headaches, head trauma (several concussions (8)). denies: seizure Psychiatric: reports: Attention Deficit Hyperactivity, anxiety, depression, claustrophobia Ear/Nose/Throat: denies: tonsillectomy, wisdom teeth removed Endocrine: reports: sluggishness, too hot or cold, excessive thirst, unexplained weakness Musculoskeletal: reports: joint pain, neck pain, back pain, muscle pain or cramping Immunologic: reports: allergies to food or environment Physical Exam Vital signs obtained and entered by: MARY Foster MA Blood Pressure: 96/58 (LEFT ARM) Cuff size: regular Heart Rate: 68 O2 Saturation: 99 Height: 4 ft 11 in Weight: 155 lb 9.6 oz Body Mass Index: 31.4 BMI Classification: Obese Neck circumference: 14 Mouth and throat: normal Soft palate: normal Hard palate: normal Uvula: normal Uvula visualization: 100% Mallampati Class I Tongue: enlarged in size with teeth egan on lateral edges Tonsils: 1+ Neck: normal w/o lymphadenopathy or thyromegaly Heart: regular rate and rhythm Lungs: clear bilaterally Impression and Plan 1. Suspected Obstructive Sleep Apnea-Hypopnea Syndrome, as suggested by a history of loud and irregular snoring, morning headache, frequent awakening during the night, unrefreshed sleep, cognitive impairment, and excessive daytime sleepiness. Narrow oropharynx and obesity are common predisposing factors for obstructive sleep apnea-hypopnea syndrome. I recommend proceeding to polysomnography to confirm the diagnosis and to assess severity. If the patient has significant sleep disordered breathing, a manual CPAP titration study will also be performed to find the optimal treatment pressure. I informed the patient of what the sleep studies involve and after some discussion, obtained agreement to proceed. The pathophysiology of obstructive sleep apnea-hypopnea syndrome was discussed with the patient and health risks of cardiovascular and cerebrovascular disease if not treated. Risks of drowsy driving discussed in detail and patient advised to avoid long distance driving and to pull through hooker at the first sign of drowsiness. Patient agreed to plan. * Schedule polysomnography +- manual CPAP titration study and return in 1-2 weeks after the study to discuss result and initiate therapy. * Avoid long distance driving or driving when feeling sleepy. * Avoid alcohol, sedative and muscle relaxant around bedtime. * Attempt to lose weight. * Review instructions provided by trained office staff on how to prepare for the sleep study. * Return for follow-up after sleep study completed. Counseling Topics: Weight loss health impact Visit Type: In Office Time Spent with Patient (minutes): 30 Provider Statement: I spent 100% of the Face to Face Visit with the patient with greater than 50% spent counseling the patient and coordination of care.
== END 2022-08-24 15:35 | disposition home or self-care (01) ==
LOC: SC 15:34
PROVIDERS: ATTEND Nurse Practitioner Family
DX: G47.10 Hypersomnia, unspecified (principal); R41.89 Other symptoms and signs involving cognitive functions and awareness; G47.8 Other sleep disorders; R51.9 Headache, unspecified; R06.83 Snoring; E66.9 Obesity, unspecified; Z68.31 Body mass index [BMI] 31.0-31.9, adult
CPT/HCPCS: 99203; 99212

== ENCOUNTER 2022-10-01 07:12 | Outpatient (CLI) | payer BC | END 2022-10-01 07:13 | disposition home or self-care (01) | LOC: LAB.N 07:12 | PROVIDERS: ATTEND Nurse Practitioner | DX: L70.0 Acne vulgaris (principal) | CPT/HCPCS: 36415; 84402; 84403 ==

== ENCOUNTER 2022-10-01 07:17 | Outpatient (CLI) | payer BC ==
--- NOTE | 2022-10-01 09:21 | XRAY Report ---
PROCEDURE: Ankle 3 View RT INDICATIONS: ANKLE PAIN RIGHT TECHNIQUE: 3 views of the ankle were acquired. COMPARISON: None. FINDINGS: Bones: No fractures or dislocations. Ankle mortise is normally aligned. No suspicious bony lesions . Radiopaque BB projects anterior to the lateral malleolus. Soft tissues: Small tibiotalar joint effusion. Achilles tendon appears normal. IMPRESSION: Radiopaque BB projects anterior to the lateral malleolus. No acute bony abnormality. If there remains a high clinical concern for fracture, consider cross-sectional imaging now. If pain persists, consid er repeat x-ray in 10-14 days or cross-sectional imaging. Reviewed by: Luke Anders on 10/01/2022 9:19 AM PDT Approved by: Luke Anders on 10/01/2022 9:19 AM PDT Station ID: [id number]
== END 2022-10-01 07:18 | disposition home or self-care (01) ==
LOC: DI.N 07:17
PROVIDERS: ATTEND Nurse Practitioner
DX: M25.571 Pain in right ankle and joints of right foot (principal); L70.0 Acne vulgaris
CPT/HCPCS: 36415; 84402; 84403

== ENCOUNTER 2022-10-08 11:59 | Outpatient (CLI) | payer BC | END 2022-10-08 12:00 | disposition home or self-care (01) | LOC: SC 11:59 | PROVIDERS: ATTEND Nurse Practitioner Family | DX: G47.33 Obstructive sleep apnea (adult) (pediatric) (principal); R09.02 Hypoxemia | CPT/HCPCS: 95806 ==

== ENCOUNTER 2022-10-09 08:00 | Outpatient (CLI) | payer BC ==
--- NOTE | 2022-10-09 11:11 | XRAY Report ---
PROCEDURE: Ankle 3 View RT INDICATIONS: RIGHT ANKLE PAIN TECHNIQUE: 3 views of the ankle were acquired. COMPARISON: Right ankle radiographs 10/01/2022 FINDINGS: Bones: No no acute fractures or dislocations. Ankle mortise is normally aligned. No suspicious bon y lesions. Soft tissues: No tibiotalar joint effusion. Achilles tendon appears normal. IMPRESSION: No acute osseous abnormality. If symptoms persist or there is continued clinical concern, further jacob luation with MRI or CT may be helpful. Reviewed by: Benny Cerda MD on 10/09/2022 11:10 AM PDT Approved by: Benny Cerda MD on 10/09/2022 11:10 AM PDT Station ID: [id number]
== END 2022-10-09 23:59 | disposition home or self-care (01) ==
LOC: DI.WOS 08:00
PROVIDERS: ATTEND Orthopaedic Surgery
DX: M25.571 Pain in right ankle and joints of right foot (principal)

== ENCOUNTER 2022-10-18 17:41 | Outpatient (CLI) | payer BC ==
--- NOTE | 2022-10-19 10:50 | MRI Report ---
PROCEDURE: ANKLE WO - RT INDICATIONS: RIGHT ANKLE PAIN TECHNIQUE: Noncontrast Magnetic Resonance Imaging (MRI) of the ankle/hindfoot was performed utilizing the follow ing sequences: sagittal T1 spin echo, sagittal T2 fast spin echo with fat saturation, axial PD fast s pin echo, axial T2 fast spin echo with fat saturation, coronal T1 spin echo, and coronal T2 fast spin echo with fat saturation. COMPARISON: Right ankle radiographs 10/09/2022 FINDINGS: Image quality: Excellent. Bones and joints: No acute trabecular bone injury or fracture. No hindfoot coalition. The ankle mortise is maintained. No osteochondral defect is seen at the talar dome. No significant degenerative changes are seen in t he midfoot or hindfoot. Medial structures: The deltoid ligament and the spring ligament complex are intact. There is mild distal posterior tibia lis tenosynovitis. The flexor digitorum longus and flexor hallucis longus tendons are intact. The pos terior tibial neurovascular bundle appears normal within the tarsal tunnel, without extrinsic mass ef fect. Lateral structures: The anterior and posterior distal tibiofibular ligaments are intact. Remote prior low-grade sprain of the anterior talofibular ligament. The calcaneofibular ligament and posterior talofibular ligament a re intact. Mild peroneus brevis and longus tendinosis. The sinus tarsi demonstrates normal fatty sign al. Anterior structures: The tibialis anterior, extensor hallucis longus, and extensor digitorum longus tendons appear intact. Posterior and plantar structures: The Achilles tendon is intact. A low-lying soleus muscle belly is noted, a normal anatomic variant. T he proximal plantar fascia is intact. No disproportionate atrophy of the abductor digiti minimi muscl e. IMPRESSION: 1.Mild distal posterior tibialis tenosynovitis. 2.Remote prior low-grade sprain of the anterior talofibular ligament. 3.Mild peroneus brevis and longus tendinosis. Reviewed by: Benny Cerda MD on 10/19/2022 10:49 AM PDT Approved by: Benny Cerda MD on 10/19/2022 10:49 AM PDT Station ID: [id number]
== END 2022-10-18 17:42 | disposition home or self-care (01) ==
LOC: DI 17:41
PROVIDERS: ATTEND Family Medicine
DX: M65.9 Synovitis and tenosynovitis, unspecified (principal); S93.491D Sprain of other ligament of right ankle, subsequent encounter; M67.873 Other specified disorders of tendon, right ankle and foot

== ENCOUNTER 2022-11-26 11:29 | Outpatient (CLI) | payer BC ==
--- NOTE | 2022-11-26 12:18 | SLEEP CARE CONSULTATION ---
Information from patient questionnaire entered by Mary Swenson. I have reviewed and concur with the information entered by Mary Swenson. This document represents the service I personally performed and the decisions made by me, Gia Hutchins MD, [facility]. History of Present Illness Service Date and Time: 11/26/2022 1129 Initial Calhoun Sleepiness Scale score: 9 (08/24/22) Current Calhoun Sleepiness Scale score: 8 (11/26/22) Additional HPI information: Ms. Galloway returned for follow up of the home sleep apnea test (HSAT) she had on 10/08/2022. The polysomnography showed mild obstructive sleep apnea-hypopnea, with an AHI of 7.0/hr and juwan SaO2 of 89%. During the study, the patient had 34 apneas (34 obstructive, 0 central, 0 mixed) and 12 hypopneas. The longest episode lasted 61.0 seconds. The patient slept almost exclusively in supine position (supine AHI was 7.1 and non-supine, 4.23). Hypoxemia, minimal, with the lowest oxygen saturation of 89 % and 0.1 minutes with SaO2 under 90%. Baseline oxygen saturation was normal (Average oxygen saturation was 96%). The patient was informed of these findings. I explained to her the pathophysiology behind obstructive sleep apnea. We then spent quite a bit of time discussing different treatment options. For mild obstructive sleep apnea, surgery and oral appliance are alternatives to nasal CPAP therapy but in moderate or severe cases, nasal CPAP is the most effective and reliable treatment. After some discussion, she opted to go with the nasal CPAP therapy. She is familiar with the treatment because almost everybody in her family uses a CPAP. Sleep Study - Results Type of Sleep Study: Polysomnography (COMPLETED 10/08/22) Prior sleep studies: No Allergies and Home Medications Drug allergies reviewed: Yes Home medication list reviewed: Yes Allergy and home medication list: Allergies amoxicillin Allergy (Verified 11/23/22 10:30) Rash hydromorphone [From Dilaudid] Allergy (Verified 11/23/22 10:30) Respiratory morphine Allergy (Verified 11/23/22 10:30) Respiratory Review of Systems Review of systems same as previous: Yes Physical Exam Vital signs obtained and entered by: MARY Foster MA Blood Pressure: 118/76 (LEFT ARM) Cuff size: regular Heart Rate: 95 O2 Saturation: 98 Height: 4 ft 11 in Impression and Plan IMPRESSION: 1. Obstructive Sleep Apnea-Hypopnea Syndrome, mild, associated with minimal hypoxemia. Possibly, this is the cause of her excessive daytime sleepiness. As mentioned above, the patient will be started on CPAP set at xx cmH2O. The patient, however, would like to wait a few months because her insurance is changing. PLAN: 1. Avoid sleeping supine. 2. Attempt to lose weight. 3. The patient was again cautioned on driving. She should be extra careful when driving until her sleepiness resolves completely on nasal CPAP therapy. Return in 3 months. I will order her a CPAP device at that time. Counseling Topics: Weight control Follow up with Sleep Care in: 3 months Visit Type: In Office Time Spent with Patient (minutes): 15 Provider Statement: I spent 100% of the Face to Face Visit with the patient with greater than 50% spent counseling the patient and coordination of care.
[2022-11-26 12:22] VITALS: BP 118/76
== END 2022-11-26 11:30 | disposition home or self-care (01) ==
LOC: SC 11:29
PROVIDERS: ATTEND Internal Medicine Pulmonary Disease
DX: G47.33 Obstructive sleep apnea (adult) (pediatric) (principal)
CPT/HCPCS: 99212